=== PATIENT | female | born 2000 | race Caucasian/White ===

== ENCOUNTER 2024-10-22 14:10 | Outpatient (CLI) | payer SELFPAY ==
[2024-10-22] VITALS (8 sets, daily range): BP systolic 91–112; BP diastolic 56–76; PULSE 83–95; O2SAT 98–99; BMI 29.0
--- NOTE | 2024-10-22 16:10 | PC.NURSE ---
patient discharged at [address] rosen's orders
== END 2024-10-22 22:00 | disposition home or self-care (01) ==
LOC: OPOB 14:13 → OBGYN 14:17
PROVIDERS: Visit Provider Obstetrics & Gynecology
DX: O26.899 Other specified pregnancy related conditions, unspecified trimester (principal); Z3A.00 Weeks of gestation of pregnancy not specified; L29.2 Pruritus vulvae
CPT/HCPCS: 59025; 99211

== ENCOUNTER → 2024-10-23 15:45 | Outpatient (BNVA) | payer SELFPAY | PROVIDERS: Visit Provider Obstetrics & Gynecology | DX: O09.30 Supervision of pregnancy with insufficient antenatal care, unspecified trimester (principal) | CPT/HCPCS: 81000; 87081; 88175 ==

== ENCOUNTER → 2024-10-28 09:23 | Outpatient (BNVA) | payer SELFPAY | PROVIDERS: Visit Provider Obstetrics & Gynecology | DX: Z36.9 Encounter for antenatal screening, unspecified (principal) | CPT/HCPCS: 76816; 76819 ==

== ENCOUNTER → 2025-10-07 11:36 | Outpatient (BNVA) | payer MEDICAID, SELFPAY | DX: R39.9 Unspecified symptoms and signs involving the genitourinary system (principal) | CPT/HCPCS: 81000 ==